=== PATIENT | male | born 1980 | race Two or more races ===

== ENCOUNTER 2020-03-14 16:51 | Outpatient (CLI) | payer SELFPAY | END 2020-03-14 16:52 | disposition home or self-care (01) | LOC: COV 16:51 | PROVIDERS: ATTEND Family Medicine | DX: R05 Cough (principal); R53.83 Other fatigue; J02.9 Acute pharyngitis, unspecified; R11.2 Nausea with vomiting, unspecified; Z20.828 Contact with and (suspected) exposure to other viral communicable diseases ==